=== PATIENT | male | born 1995 | race Hispanic/Latino ===

== ENCOUNTER 2024-07-01 06:47 | Emergency (ER) | payer SELFPAY ==
[2024-07-01 07:39] LABS: #Basophils 0.07 10x3/uL (0.0-0.2); #Eosinophils 0.49 10x3/uL (0.0-0.5); #Neutrophils 4.15 10x3/uL (1.5-8.4); %Basophils 0.8 % (0.0-2.0); %Eosinophils 5.5 % (0.0-6.0); %Lymphocytes 38.4 % (18.0-47.0); %Monocytes 7.9 % (0.0-10.0); %Neutrophils 46.9 % (40.0-75.0); Hematocrit 49.2 % (38.8-50.0); Hemoglobin 16.9 g/dL (13.5-17.5); Mean Corpuscular HGB CONC 34.3 g/dL (32.0-36.0); Mean Corpuscular Hemoglobin 29.6 pg (27.0-33.0); Mean Corpuscular Volume 86.3 fL (81.2-95.1); Mean Platelet Volume 9.5 fL (7.4-10.4); Platelet Count 264 10x3/uL (150-450); RBC Distribution Width 12.3 % (11.5-14.5); White Blood Cell (WBC) Count 8.85 10x3/uL (3.5-10.5)
[2024-07-01] MEDS ORDERED: Morphine 4 MG/ML VIAL ONE ×2 (07:49→08:42)
[2024-07-01] MEDS ORDERED: Pantoprazole 40 MG VIAL ONE ×2 (07:49→08:42)
[2024-07-01] MEDS ORDERED: Ondansetron PF 4 MG/2 ML Vial ONE ×2 (07:49→08:42)
[2024-07-01 07:53] LABS: ALT (SGPT) 40 U/L (Less than 45); Albumin 4.7 g/dL (3.1-4.5); Alkaline Phosphatase 68 U/L (40-110); Anion Gap 19 mmol/L (10-20); BUN (Urea Nitrogen) 19 mg/dL (8.9-20.6); Bilirubin, Total 0.4 mg/dL (0.3-1.2); Calc. Creatinine Clearance 0 mL/min (70-130); Calcium 9.6 mg/dL (7.8-10.44); Carbon Dioxide 22 mmol/L (22-29); Chloride 105 mmol/L (98-107); Estimated GFR 93; Globulin 3.7 g/dL (2.4-3.5); Glucose 119 mg/dL (70-105); Lipase 25 U/L (8-78); Potassium 3.9 mmol/L (3.5-5.1); Protein, Total 8.4 g/dL (6.0-8.3); Sodium 142 mmol/L (136-145)
[2024-07-01 08:15] LABS: AST (SGOT) 33 U/L (11-34)
[2024-07-01 08:18] LABS: Troponin I Less than 0.010 ng/mL (< 0.028)
[2024-07-01] MEDS ORDERED: Ketorolac Tromethamine 30 MG (1 mL) VIAL ONE (09:08)
[2024-07-01 09:33] LABS: Bilirubin Neg (Negative); Blood, Urine 10 (Negative); Clarity Clear (Clear); Glucose, Urine (Dipstick) Normal (Negative); Ketone, Urine Negative (Negative); Leukocyte Negative (Negative); Nitrite Negative (Negative); Protein, Urine (Dipstick) 30 mg/dl (Neg-Trace); Specific Gravity, Urine 1.025 (1.005-1.030); Urobilinogen Normal mg/dL (Less than 2)
[2024-07-01 09:35] LABS: Bacteria/HPF None Seen HPF (None Seen); CAUTI Indications for Culture Pelvic or flank pain; RBC/HPF 0-3 HPF (0-3); Squamous Epithelial 0-3 HPF (0-3); WBC/HPF None Seen HPF (0-3)
[2024-07-01 09:36] LABS: Urine Culture Reflex No No
== END 2024-07-01 10:15 | disposition home or self-care (01) ==
LOC: CSHERS 06:47
DX: K80.20 Calculus of gallbladder without cholecystitis without obstruction (principal)
CPT/HCPCS: 71045; 76705; 80053; 81001; 83690; 84484; 85025; 93005; 96361; 96374; 96375; J1885; J2270; J2405; J2470